=== PATIENT | female | born 1980 | race African-American/Black ===

== ENCOUNTER 2018-05-10 13:00 | Emergency (ER) | payer MEDICAID ==
[~2018-05-10] VITALS: Ht 152.4 cm; Wt 106.0 kg
[2018-05-10 13:34] VITALS: BP 155/101
== END 2018-05-10 21:05 | disposition left against medical advice (07) ==
LOC: ER 13:00
DX: Z53.21 Procedure and treatment not carried out due to patient leaving prior to being seen by health care provider (principal); F17.200 Nicotine dependence, unspecified, uncomplicated